=== PATIENT | female | born 1955 | race African-American/Black ===

== ENCOUNTER 2017-01-23 13:16 | Emergency (ER) | payer OTHER, MEDICARE ==
[2017-01-23 14:06] VITALS: BP 125/57
--- NOTE | 2017-01-23 14:26 | ER Document Report ---
HPI - HPI Patient complains to provider of: Foreign body in left ear Onset: This morning Onset/Duration: Sudden Severity: Severe Pain Level: 4 Context: Patient presents to the emergency department with reports that the Q-tip top is stuck in her left ear. But that happened when she cleaned her ears this morning. [facility] that it was too far down. Denies pain. Associated Symptoms: None Exacerbated by: Denies Relieved by: Denies Similar symptoms previously: Yes Recently seen / treated by doctor: Yes - REPRODUCTIVE Reproductive: DENIES: : - DERM Skin Color: Normal Past Medical History - General Information source: Patient - Social History Smoking Status: Unknown if Ever Smoked Cigarette use (# per day): No Frequency of alcohol use: None Drug Abuse: None Family History: Reviewed & Not Pertinent Pulmonary Medical History: Reports: Hx Asthma Neurological Medical History: Reports: Hx Migraine Renal/ Medical History: Denies: Hx Peritoneal Dialysis Psychiatric Medical History: Reports: Hx Depression, Hx Post Traumatic Stress Disorder Past Surgical History: Reports: Hx Hysterectomy, Hx Tonsillectomy - Immunizations Immunizations up to date: Yes Hx Diphtheria, Pertussis, Tetanus Vaccination: Yes - 2010 Vertical Provider Document - CONSTITUTIONAL Agree With Documented VS: Yes Exam Limitations: No Limitations General Appearance: WD/WN, No Apparent Distress - INFECTION CONTROL TRAVEL OUTSIDE OF THE [place] IN LAST 30 DAYS: No - HEENT HEENT: Atraumatic, Normocephalic. negative: Tympanic Membrane Red - Piece of cotton noted in patient's left ear. - NECK Neck: Normal Inspection, Supple - RESPIRATORY Respiratory: No Respiratory Distress O2 Sat by Pulse Oximetry: 97 - MUSCULOSKELETAL/EXTREMETIES Musculoskeletal/Extremeties: MAURICE BOLAND - NEURO Level of Consciousness: Awake, Alert, Appropriate Motor/Sensory: No Motor Deficit - DERM Integumentary: Warm, Dry Course - Re-evaluation Re-evalutation: 01/23/17 Qtip cotton removed with alligator forceps without problem. No damage to TM, TM looks good, no erythema Patient encouraged not to put anything large in her ear again. She reports she usually cleans her years with paper. - Vital Signs Vital signs: Temp Pulse Resp BP Pulse Ox 98.1 F 58 L 16 125/57 L 97 01/23/17 14:05 01/23/17 14:05 01/23/17 14:05 01/23/17 14:05 01/23/17 14:05 Discharge - Discharge Clinical Impression: qtip cotton tip removed from left ear, Elevated blood pressure reading Disposition: HOME, SELF-CARE Additional Instructions: *You have been evaluated for ear irritation, removal of cotton tip from your ear *Avoid placing items in your ear *Follow up with a primary care provider for recheck in one week *Return to ED for worsening condition, changes, needs Monitor your blood pressure. Your blood pressure was elevated today. This may be because you were anxious, in pain or because you need medication. It is important to follow up with your primary care provider for full evaluation. Forms: Elevated Blood Pressure
== END 2017-01-23 14:30 | disposition home or self-care (01) ==
LOC: ER 13:16
DX: T16.2XXA Foreign body in left ear, initial encounter (principal); X58.XXXA Exposure to other specified factors, initial encounter; Y93.E8 Activity, other personal hygiene; R03.0 Elevated blood-pressure reading, without diagnosis of hypertension; J45.909 Unspecified asthma, uncomplicated
CPT/HCPCS: 99282

== ENCOUNTER 2018-03-17 02:07 | Emergency (ER) | payer OTHER, MEDICARE ==
[2018-03-17] MEDS ORDERED: MORPHINE SULFATE 10 MG/ML INJ IM ONE (02:50)
[2018-03-17] MEDS ORDERED: DEXAMETHASONE SOD PHOS INJ 10 MG/1 ML VIAL IM ONE (02:51)
--- NOTE | 2018-03-17 03:17 | ER Document Report ---
ED General - General Chief Complaint: Back Pain Stated Complaint: BACK PAIN Time Seen by Provider: 03/17/18 02:39 Notes: Patient is a 62-year-old female presents with complaint of sciatic pain on the left. She has had this before but today is worse than usual. She denies any injuries. She notes that when she was walking earlier today. Pain is gradually worsened therefore she is come to ER. No loss of bowel control. No urine retention. No weakness into the leg. She says it does hurt into her left hip and back whenever she does move her left or right leg. No history of back surgeries. No other complaints at this time. TRAVEL OUTSIDE OF THE [place] IN LAST 30 DAYS: No - Related Data Allergies/Adverse Reactions: oxycodone HCl [From Percocet] Allergy (Verified 10/05/11 07:52) Penicillins Allergy (Verified 10/05/11 07:52) quetiapine fumarate [From Seroquel] Allergy (Verified 10/05/11 07:52) Past Medical History - Social History Smoking Status: Never Smoker Frequency of alcohol use: None Drug Abuse: None Family History: Reviewed & Not Pertinent Pulmonary Medical History: Reports: Hx Asthma Neurological Medical History: Reports: Hx Migraine Renal/ Medical History: Denies: Hx Peritoneal Dialysis Psychiatric Medical History: Reports: Hx Depression, Hx Post Traumatic Stress Disorder Past Surgical History: Reports: Hx Hysterectomy, Hx Tonsillectomy - Immunizations Immunizations up to date: Yes Hx Diphtheria, Pertussis, Tetanus Vaccination: Yes - 2010 Review of Systems - Review of Systems Notes: My Normal Review Basic REVIEW OF SYSTEMS: CONSTITUTIONAL : Denies fever, chills, or sweats. Denies recent illness. GASTROINTESTINAL: Denies abdominal pain. Denies nausea, vomiting, or diarrhea. GENITOURINARY: Denies difficulty urinating, painful urination, burning, frequency, or blood in urine. MUSCULOSKELETAL: Pain in the left lower back that radiates down the back of left leg. SKIN: Denies rash or skin lesions. NEUROLOGICAL: Denies sensory or motor loss. ALL OTHER SYSTEMS REVIEWED AND NEGATIVE. Physical Exam - Vital signs Vitals: Temp Pulse Resp BP Pulse Ox 97.7 F 82 22 H 136/87 H 97 03/17/18 02:14 03/17/18 02:14 03/17/18 02:14 03/17/18 02:14 03/17/18 02:14 - Notes Notes: General Appearance: Well nourished, alert, cooperative, no acute distress, moderate to severe obvious discomfort. Vitals: reviewed, See vital signs table. Eyes: PERRL, EOMI, Conjuctiva clear Abdomen: Normal BS, soft, No rigidity, No abdominal tenderness, No guarding, no rebound, no abdominal masses, no organomegaly Back: Pain easily reproducible to palpation over left lumbar paraspinal musculature and into the left gluteal region. Extremities: strength 5/5 in all extremities, good pulses in all extremities, she has good strength with plantar dorsiflexion of left foot however when she does dorsiflex it causes increasing pain up her leg and into her lower back. Distal sensation intact. Skin: warm, dry, appropriate color, no rash Neuro: speech clear, oriented x 3, normal affect, responds appropriately to questions. Course - Re-evaluation Re-evalutation: 03/17/18 05:07 Back pain is doing some better but she still has significant pain. Will try a dose of Valium to see if this eases off her pain a little bit further. 03/17/18 05:53 She says her pain is doing much better now. She is requesting to go home. She does have some and will drive her home. I will write a prescription for Valium as this seemed to help the most for her. Also wrote a prescription for Lidoderm patches and have her take Tylenol Motrin at home. Encouraged her follow-up closely with her doctor this week. I will give her a few days off work. Encourage her to avoid any heavy lifting but to still get up and walk around and move around. Patient to return to ER if she has any signs of cauda equina syndrome such as worsening pain, leg weakness, perineal numbness, loss of bowel control, or urinary retention. Patient agrees with plan will be discharged home. Dictation of this chart was performed using voice recognition software; therefore, there may be some unintended grammatical errors. - Vital Signs Vital signs: Temp Pulse Resp BP Pulse Ox 98.3 F 65 16 126/84 H 96 03/17/18 05:20 03/17/18 05:20 03/17/18 05:20 03/17/18 05:20 03/17/18 05:20 Discharge - Discharge Clinical Impression: Low back pain Qualifiers: Chronicity: acute Back pain laterality: left Sciatica presence: with sciatica Sciatica laterality: sciatica of left side Qualified Code(s): M54.42 - Lumbago with sciatica, left side Condition: Good Disposition: HOME, SELF-CARE Additional Instructions: LOW BACK PAIN: Three out of every four people will have an episode of disabling back pain during their lifetime. Most commonly the pain is due to straining of the muscles and ligaments in the low back. Usual treatment includes: (1) Rest on a firm surface. Avoid lying on your stomach. (2) Ice pack the painful area. After a few days, gentle heat may be used intermittently to relax the area, or ice packs can be continued. (3) Medication may be needed -- muscle relaxers and antiinflammatory medicines are commonly used. (4) As the back improves, exercises are prescribed to strengthen the back and abdominal muscles. Your doctor will advise you on the proper care for your back at each stage in your recovery. You may be better in a few days -- or healing may take several weeks. If new symptoms of a "herniated disc" (radiation of pain, numbness, or tingling down the back of the leg or weakness in the leg) occur, you should be re-examined. Further testing may be necessary. PAIN MEDICATION INJECTION: You have received an injection of a pain medication. You should experience significant pain relief within 45 minutes. If this injection was a narcotic -- it will impair your judgement, slow your reaction time and make you sleepy (as well as relieve your pain). Narcotics also can cause nausea. You should not drive, work with machinery, or perform any task requiring mental alertness until all effects of the medication are gone -- six to eight hours. Do not take any alcohol, or sedatives, and do not take any other medication without checking with your physician. ORAL NARCOTIC MEDICATION: You have been given a prescription for pain control. This medication is a narcotic. It's best taken with food, as nausea can result if taken on an empty stomach. Don't operate machinery or drive within six hours of taking this medication. Do not combine this medicine with alcohol, or with any medication which can cause sedation (such as cold tablets or sleeping pills) unless you get permission from the physician. Narcotics tend to cause constipation. If possible, drink plenty of fluids and eat a diet high in fiber and fruits. Please be aware that prescription narcotics also have the potential for abuse. People become addicted to these medications because of the general sense of wellbeing that they induce. This feeling along with a significant reduction in tension, anxiety, and aggression provides a stimulating seductive quality to these drugs. Once your pain is under control, we encourage you to discard your unused narcotics. MUSCLE RELAXERS: Muscle relaxing medications are usually prescribed for acute muscle spasm or injury to the neck and back. They are often combined with antiinflammatory pain medication for increased relief. You may stop the muscle relaxer when the pain and stiffness have improved. Start the medication again if spasms recur. Muscle relaxers may cause drowsiness, especially with the first dose. Do not operate machinery or drive while under the effects of the medication. Most muscle relaxers last up to 24 hours. Do not combine the medication with alcohol. ICE PACKS: Apply ice packs frequently against the painful area. Many different schedules are recommended, such as "20 minutes on, 20 minutes off" or "one hour ice, two hours rest." If you need to work, you may need to go longer between ice treatments. You should plan to have the area ice packed AT LEAST one fourth of the time. The ice should be applied over the wrap, tape, or splint, or over a layer of cloth -- not directly against the skin. Some ice bags have a built-in cloth and can be put directly on the skin. WARM PACKS: After approximately two days, apply gentle heat (such as a heating pad or hot water bottle) for about 20 to 30 minutes about every two hours -- at least four times daily. Warmth and elevation will help you make a more rapid recovery , and will ease the pain considerably. Do not use HOT heat, and never apply heat for longer than 30 minutes. The continuous heat can invisibly damage skin and muscles -- even when no burn is seen on the surface. Damaged muscles can make you MORE sore. FOLLOW-UP CARE: If you have been referred to a physician for follow-up care, call the physician s office for an appointment as you were instructed or within the next two days. If you experience worsening or a significant change in your symptoms, notify the physician immediately or return to the Emergency Department at any time for re-evaluation. Please follow up closely with your doctor this week for reevaluation. Please take Tylenol 500mg every 4 hours as well as Ibuprofen 400mg every 6hours to help with your pain. Please take the Valium as prescribed to help relax the muscles in your back. Please do not drive after taking the Valium as it will make you sleepy. Please return to the ER if you have worsening pain, loss of control of your bowel function, inability to urinate, leg weakness, numbness in your pelvic region or if you feel unwell Prescriptions: Diazepam [Valium 5 mg Tablet] 5 mg PO TIDP PRN #15 tablet PRN Reason: back pain Lidocaine [Lidoderm 5% (700 mg) Transdermal Patch] 1 patch TP DAILY #14 adh..patch Forms: Return to Work
[2018-03-17] MEDS ORDERED: HYDROMORPHONE HCL INJ/PF 2 MG/ML AMPULE IM ONE (04:06)
[2018-03-17] MEDS ORDERED: KETOROLAC TROMETHAMINE INJ/PF 30 MG/1 ML SDV IM ONE (04:06)
[2018-03-17] MEDS ORDERED: DIAZEPAM INJ 10 MG/2 ML DISP.SYRIN IM ONE (05:07)
[2018-03-17 05:22] VITALS: BP 126/84
== END 2018-03-17 06:06 | disposition home or self-care (01) ==
LOC: ER 02:07
DX: M54.42 Lumbago with sciatica, left side (principal); M25.552 Pain in left hip; J45.909 Unspecified asthma, uncomplicated
CPT/HCPCS: 99283; 96372; J3360; J1885; J2270; J1170; J1100